=== PATIENT | female | born 1955 | race Caucasian/White ===

== ENCOUNTER 2017-04-20 10:57 | Emergency (ER) | payer OTHER ==
[2017-04-20 11:12] VITALS: RESP 16; TEMP 98.2
--- NOTE | 2017-04-20 11:56 | EDPHY ---
H & P Time Seen by Provider: 04/20/17 11:55 HPI/ROS: Chief complaint. Back spasms HPI. 61-year-old female presents emergency department with low back pain present for 2 days. She and her were visiting [place] and felt like the bed was quite uncomfortable. She did some stretching and hiking on Thursday and felt better. Somewhat better this yesterday. This morning however she was making a bed twisting and reaching and had sudden onset of increased pain in her low back. It is worse with movement. It comes in spasms and waves. She has no radiation to her legs. No bowel or bladder symptoms. Denies chest pain, shortness of breath, abdominal pain. No urinary symptoms. No fever. No similar symptoms previously ROS Constitutional. no fever/chills, no weakness Eyes. no problems with vision ENT. no sore throat, no nasal drainage Cardiovascular. no chest pain Respiratory. no shortness of breath, no cough Abdominal. no abdominal pain, no nausea/vomiting, no diarrhea . no problems urinating MS. low back pain Skin. no rash Lymph. no swollen glands Neuro. no headache, no dizziness, no difficulty walking or with speech Past Medical/Surgical History: Past medical history is significant for ACL repair and wrist surgery Social History: , nonsmoker, no alcohol Physical Exam: General Appearance: Alert pleasant well-developed female moderate distress vital signs are stable Eyes: Pupils equal and round no pallor or injection. ENT, Mouth: Mucous membranes are moist. Respiratory: There are no retractions, lungs are clear to auscultation. Cardiovascular: Regular rate and rhythm. Gastrointestinal: Abdomen is soft and nontender, no masses, bowel sounds normal. Neurological: Awake and alert, sensory and motor exams grossly normal. Deep tendon reflexes are symmetrical. Great toe strength is normal. Leg sensation is normal bilaterally. Patient has spasm to the back at 30 degrees on each leg with straight leg raising. However no radiculopathy Skin: Warm and dry, no rashes. Musculoskeletal: Neck is supple nontender. Tenderness to the lumbar area some over the spine and then some to both sides of the lumbar spine. Extremities symmetrical, full range of motion. Psychiatric: Patient is oriented X 3, there is no agitation. Constitutional: Initial Vital Signs Temperature (C) 36.8 C 04/20/17 11:08 Heart Rate 63 04/20/17 11:08 Respiratory Rate 16 04/20/17 11:08 Blood Pressure 166/94 H 04/20/17 11:08 O2 Sat (%) 98 04/20/17 11:08 O2 Delivery Mode Room Air Allergies/Adverse Reactions: cephalexin [From Keflex] Allergy (Verified 04/20/17 11:12) Home Medications: Medication Instructions Recorded CYCLOBENZAPRINE HCL [Flexeril] 5 mg PO TIDPRN PRN #10 tab 04/20/17 Ldhrt 04/20/17 Synthroid 04/20/17 oxyCODONE/APAP 5/325 [Percocet 1 tab PO Q4-6PRN PRN #10 tab 04/20/17 5/325] Medical Decision Making Procedures: Patient declines IV medication and would like oral medication Patient is given oral Percocet, Flexeril, Zofran. Lidocaine patch. Patient already had 3 ibuprofen just prior to arrival ED Course/Re-evaluation: Re-evaluation 12:50 p.m.. Patient is resting comfortably. Re-evaluation 1:20 p.m.. Patient is now ambulatory and feeling much better. The patient, her , and I discussed diagnosis, treatment plan including criteria for return and importance of follow-up and further evaluation. They expressed understanding and agreement Differential Diagnosis: I believe this is muscular in etiology. I considered HNP and cauda equina syndrome as well - Data Points Medications Given: Discontinued Medications Cyclobenzaprine HCl (Flexeril) 10 mg PO EDNOW ONE Stop: 04/20/17 12:09 Last Admin: 04/20/17 12:18 Dose: 10 mg Lidocaine (Lidoderm 5%) 1 ea TD EDNOW ONE Stop: 04/20/17 12:10 Last Admin: 04/20/17 12:18 Dose: 1 ea Ondansetron HCl (Zofran Odt) 4 mg PO EDNOW ONE Stop: 04/20/17 12:08 Last Admin: 04/20/17 12:18 Dose: 4 mg Oxycodone/Acetaminophen (Percocet 5/325) 1 tab PO EDNOW ONE Stop: 04/20/17 12:08 Last Admin: 04/20/17 12:18 Dose: 1 tab Departure - Departure Disposition: Home, Routine, Self-Care Clinical Impression: Acute lumbar myofascial strain Qualifiers: Encounter type: initial encounter Qualified Code(s): S39.012A - Strain of muscle, fascia and tendon of lower back, initial encounter Condition: Fair Instructions: Low Back Strain (ED) Additional Instructions: Ice to sore area of low back 1st 24 hours and then apply heat. Ibuprofen 600 mg every 6 hours. Percocet in addition as needed for pain. Flexeril as muscle relaxer. Easy activity. Return for leg weakness or bowel or bladder symptoms. Recheck in 2-3 days if not improving Referrals: NONE *PRIMARY CARE P,. [Primary Care Provider] - As per Instructions Bre Martinez DO [Doctor of Osteopathy] - 2-3 days, if not improved Stand Alone Forms: Airline Excuse Prescriptions: CYCLOBENZAPRINE HCL [Flexeril] 5 mg PO TIDPRN PRN #10 tab PRN Reason: Spasms oxyCODONE/APAP 5/325 [Percocet 5/325] 1 tab PO Q4-6PRN PRN #10 tab PRN Reason: Pain, Moderate
[2017-04-20] MEDS ORDERED: OXYCODONE/APAP 5/325 TAB PO ONE (12:07)
[2017-04-20] MEDS ORDERED: ONDANSETRON DISINTEGRATING 4 MG TAB PO ONE (12:07)
[2017-04-20] MEDS ORDERED: CYCLOBENZAPRINE 10 MG TAB PO ONE (12:08)
[2017-04-20] MEDS ORDERED: LIDOCAINE 5% 1 EA PATCH TD ONE (12:09)
[2017-04-20 13:54] VITALS: BP 138/84; PULSE 55; O2SAT 95
[2017-04-20] MEDS ORDERED: PATCH REMOVAL 1 EA PATCH TD SCH (21:00)
== END 2017-04-20 14:00 | disposition home or self-care (01) ==
LOC: CED 10:57
DX: S39.012A Strain of muscle, fascia and tendon of lower back, initial encounter (principal); X58.XXXA Exposure to other specified factors, initial encounter

== ENCOUNTER → 2017-10-12 | Outpatient (CLI) | payer OTHER | LOC: CIMAGING 10:52 | PROVIDERS: ATTEND Obstetrics & Gynecology | DX: Z12.31 Encounter for screening mammogram for malignant neoplasm of breast (principal) ==

== ENCOUNTER → 2018-10-13 | Outpatient (CLI) | payer OTHER | LOC: CIMAGING 12:21 | PROVIDERS: ATTEND Obstetrics & Gynecology | DX: Z12.31 Encounter for screening mammogram for malignant neoplasm of breast (principal) ==

== ENCOUNTER → 2018-10-28 | Outpatient (CLI) | payer OTHER | LOC: FIMAGING 13:39 | PROVIDERS: ATTEND Obstetrics & Gynecology | DX: R92.8 Other abnormal and inconclusive findings on diagnostic imaging of breast (principal) ==

== ENCOUNTER → 2019-02-04 | Outpatient (CLI) | payer OTHER | LOC: BRMIMAGING 10:07 ==

== ENCOUNTER → 2019-02-09 | Outpatient (CLI) | payer OTHER | LOC: FIMAGING 12:04 ==